=== PATIENT | male | born 1945 | race Caucasian/White ===

== ENCOUNTER 2021-08-31 18:08 | Inpatient (IN) | payer MEDICARE, OTHER ==
[~2021-08-31] VITALS: Ht 165.1 cm; Wt 87.1 kg
[2021-08-31] MEDS ORDERED: METO25TA4 PO (18:37)
[2021-08-31] MEDS ORDERED: PRAS10TA5 PO (18:37)
[2021-08-31] MEDS ORDERED: CARV3.122 PO (18:37)
[2021-08-31] MEDS ORDERED: BENA5TAB5 PO (18:37)
[2021-08-31] MEDS ORDERED: ASPI-1420 PO (18:37)
[2021-08-31] MEDS ORDERED: SIMV-46 PO (18:37)
[2021-08-31] MEDS ORDERED: CLON1TAB12 PO (18:37)
[2021-08-31] MEDS ORDERED: CYAN-51 PO (18:37)
[2021-08-31] MEDS ORDERED: TAMS-12 PO (18:37)
[2021-08-31] MEDS ORDERED: ALBU18HF2 IH (18:37)
--- NOTE | 2021-08-31 18:40 | NUR ---
BIBSON C/O SOB WITH CHERYLE LOWER LEG EDEMA. OXYGEN SATURATION IN ROOM AIR IS AT 97%. RESPIRATION REGULAR AND UNLABORED. ATTACHED TO THE MONITOR. WILL CONTINUE TO MONITOR THE PATIENT
[2021-08-31] MEDS ORDERED: FUROSEMIDE 20 MG/2 ML VIAL ONE (19:25)
[2021-08-31] MEDS ORDERED: FUROSEMIDE 20 MG/2 ML VIAL IV ONE (19:30)
--- NOTE | 2021-08-31 19:50 | NUR ---
L HAND #20G S/L PATENT AND INTACT. DRIVE TESTER AT PT'S BEDSIDE. OFFER PT URINAL . VSS
--- NOTE | 2021-08-31 19:56 | NUR ---
ORTHODONTIST VICE PRESIDENT AT PT'S BEDSIDE
[2021-08-31 20:05] LABS: CALCIUM, SERUM 9.1 mg/dL (8.5-10.1); CARBON DIOXIDE 28 mmol/L (21-32); CHLORIDE 105 mmol/L (98-107); CREATININE 1.3 mg/dL (0.6-1.3); GLUCOSE 104 mg/dL (74-106); POTASSIUM 4.4 mmol/L (3.5-5.1); SODIUM SERUM 137 mmol/L (136-145); UREA NITROGEN, BLOOD 19 mg/dL (7-18)
--- NOTE | 2021-08-31 20:59 | NUR ---
US TECH AT PT'S BEDSIDE
--- NOTE | 2021-08-31 21:09 | NUR ---
COVID TEST SWABBED AND SENT TO LAB
--- NOTE | 2021-08-31 21:10 | NUR ---
PAINT DIPPER AT BEDSIDE FOR BLOODRAW
--- NOTE | 2021-08-31 21:16 | NUR ---
MRSA SWAB COLLECTED AND SENT TO LAB. PATIENT'S BELONGINGS LIST DONE.
[2021-08-31 21:37] LABS: BASOPHILS % (AUTO) 0.7 % (0.0-2.0); EOSINOPHILS % (AUTO) 3.2 % (0.0-6.0); HEMATOCRIT 42 % (39-51); HEMOGLOBIN 13.5 g/dL (13.5-17.5); LYMPHOCYTES # (AUTO) 1.9 K/uL (0.8-4.8); LYMPHOCYTES % (AUTO) 29.4 % (20.0-44.0); MEAN CORPUSCULAR HGB CONC 32 g/dl (31.0-36.0); MEAN CORPUSCULAR VOLUME 88 fL (80-96); MONOCYTES # (AUTO) 0.7 K/uL (0.1-1.30); MONOCYTES % (AUTO) 9.9 % (2.0-12.0); NEUTROPHILS # (AUTO) 3.7 K/uL (1.8-8.9); NEUTROPHILS % (AUTO) 56.8 % (43.0-81.0); PLATELET COUNT (AUTO) 252 K/uL (150-450); RED BLOOD CELL COUNT(AUTO) 4.75 MIL/uL (4.5-6.0); WHITE BLOOD COUNT (AUTO) 6.6 K/uL (4.3-11.0)
--- NOTE | 2021-08-31 22:49 | NUR ---
TELE 308-5
[2021-08-31] MEDS ORDERED: clonazePAM 1 MG TABLET PO PRN (23:00)
--- NOTE | 2021-08-31 23:00 | NUR ---
REPORT GIVEN TO KALE
[2021-08-31 23:30] VITALS: BP 118/66
[2021-08-31] MEDS ORDERED: ACETAMINOPHEN 325 MG TABLET PO PRN (23:30)
[2021-08-31] MEDS ORDERED: Z GUARD REMEDY 4 OZ OINT TP PRN (23:30)
[2021-08-31] MEDS ORDERED: ALBUTEROL FS 2.5 MG/3 ML VIAL.NEB NEB PRN (23:30)
[2021-08-31] MEDS ORDERED: ZOLPIDEM TARTRATE 5 MG TABLET PO PRN (23:30)
[2021-08-31] MEDS ORDERED: MAGNESIUM HYDROXIDE 30 ML UDC PO PRN (23:30)
[2021-08-31] MEDS ORDERED: ONDANSETRON HCL/PF 4 MG/2 ML VIAL IVP PRN (23:30)
[2021-08-31] MEDS ORDERED: MAG HYDROX/AL HYDROX/SIMETH 30 ML UDC PO PRN (23:30)
--- NOTE | 2021-08-31 23:42 | NUR ---
PT TRANSPORTED TO ROOM 308 ON TAXI DRIVER SUPERVISOR WITHOUT INCIDENT. PT TRANSFERRED IN STABLE CONDITION.
--- NOTE | 2021-08-31 23:45 | NUR ---
RN ADMITTING NOTE PATIENT CAME FROM ER D/T CHERYLE LOWER EXT EDEMA AND SOB. PATIENT CURRENTLY ON RA, TOLERATING WELL WITH 96% O2 SATURATION, WITH MILD SOB. PATIENT HAS PITTING EDEMA ON CHERYLE FEET AND ANKLES. TELE MONITOR READS SR 78 BPM. PATIENT IS VACCINATED WITH PFIZER X 3. PATIENT HAS A L HAND 20 G PATENT AND INTACT, FLUSHING WELL. PATIENT'S SKIN ISSUES DOCUMENTED. BELONGINGS INVENTORIED. ORIENTED PATIENT TO RM, RN, COPY ROOM TECHNICIAN. SAFETY MEASURES IN PLACE: BED LOCKED AND IN LOWEST POSITION, CALL LIGHT WITHIN REACH, SIDE RAILS UP. WILL MONITOR PATIENT CLOSELY.
[2021-09-01 04:00] VITALS: BP 112/63
[2021-09-01] MEDS ORDERED: FUROSEMIDE 20 MG/2 ML VIAL IV ONE (06:00)
--- NOTE | 2021-09-01 06:35 | NUR ---
RN CLOSING NOTE PATIENT IN BED, SLEEPING, EASILY AWAKENED. PATIENT IS A/O X 4, ABLE TO MAKE NEEDS KNOWN. PATIENT STILL TOLERATING RA A 97% O2 SATURATION. PATIENT REPORTS THAT HE "FEELS BETTER" FROM WHEN HE GOT ADMITTED. 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 PATIENT STEADILY AMBULATES TO THE BATHROOM. PATIENT HAS A L HAND 20 G, SALINE LOCKED, FLUSHING WELL. NO REPORTS OF PAIN AT THIS TIME. SAFETY MEASURES IN PLACE: BED LOCKED AND IN LOWEST POSITION, CALL LIGHT WITHIN REACH, SIDE RAILS UP. WILL ENDORSE TO DAY SHIFT NURSE FOR JING.
[2021-09-01 06:38] LABS: CALCIUM, SERUM 10.1 mg/dL (8.5-10.1); CREATININE 1.3 mg/dL (0.6-1.3); MAGNESIUM 2.1 mg/dL (1.8-2.4); PHOSPHORUS 4.9 mg/dL (2.5-4.9); POTASSIUM 4.1 mmol/L (3.5-5.1)
[2021-09-01 07:18] LABS: BASOPHILS % (AUTO) 0.3 % (0.0-2.0); EOSINOPHILS % (AUTO) 3.4 % (0.0-6.0); HEMATOCRIT 40 % (39-51); HEMOGLOBIN 13.1 g/dL (13.5-17.5); LYMPHOCYTES # (AUTO) 2.3 K/uL (0.8-4.8); LYMPHOCYTES % (AUTO) 32.9 % (20.0-44.0); MEAN CORPUSCULAR HGB CONC 33 g/dl (31.0-36.0); MEAN CORPUSCULAR VOLUME 87 fL (80-96); MONOCYTES # (AUTO) 0.7 K/uL (0.1-1.30); MONOCYTES % (AUTO) 9.6 % (2.0-12.0); NEUTROPHILS # (AUTO) 3.7 K/uL (1.8-8.9); NEUTROPHILS % (AUTO) 53.8 % (43.0-81.0); PLATELET COUNT (AUTO) 230 K/uL (150-450); WHITE BLOOD COUNT (AUTO) 6.9 K/uL (4.3-11.0)
--- NOTE | 2021-09-01 07:47 | NUR ---
SUPERVISOR STEFFEN HOUSE OPENING NOTE RECEIVED PATIENT IN BED, AWAKE, A/O X4, ABLE TO MAKE NEEDS KNOWN. PATIENT ON ROOM AIR; BREATHING EVEN AND UNLABORED. TELE MONITOR WITH A CURRENT READING OF SR 71. IV ACCESS ON L HAND 20 G, SALINE LOCKED, FLUSHING WELL. NO REPORTS OF PAIN AT THIS TIME. SAFETY MEASURES IN PLACE: BED LOCKED AND IN LOWEST POSITION, CALL LIGHT WITHIN REACH, SIDE RAILS UP. WILL CONTINUE TO MONITOR PATIENT.
[2021-09-01 08:47] VITALS: BP 121/69
[2021-09-01] MEDS ORDERED: ASPIRIN EC 81 MG TABLET.DR PO SCH (09:00)
[2021-09-01] MEDS ORDERED: CYANOCOBALAMIN 500 MCG TABLET PO SCH (09:00)
[2021-09-01] MEDS ORDERED: TAMSULOSIN 0.4 MG CAP.SR.24H PO SCH (09:00)
[2021-09-01] MEDS ORDERED: CARVEDILOL 3.125 MG TABLET PO SCH (09:00)
[2021-09-01] MEDS ORDERED: PRASUGREL HCL 5 MG TABLET PO SCH ×2 (09:00)
[2021-09-01] MEDS ORDERED: BENAZEPRIL HCL 5 MG TABLET PO SCH (09:00)
[2021-09-01] MEDS ORDERED: FUROSEMIDE 40 MG/4 ML VIAL IV SCH (12:00)
--- NOTE | 2021-09-01 12:49 | NUR ---
HEAD OF DRAMA NOTES CHECKED 1200 BP: 96/54 PER MD RE-CHECKED MANUAL: BP 98/58. PER MD HOLD 1200 IRONIX
[2021-09-01 13:17] VITALS: BP 100/52
[2021-09-01] MEDS ORDERED: ENOXAPARIN SODIUM 40 MG/0.4 ML DISP.SYRIN SQ SCH (14:30)
--- NOTE | 2021-09-01 15:43 | NUR ---
TRIMMER AND REINFORCER AMA NOTES PATIENT LEFT AMA WITH FAMILY INSISTING ON DISCHARGE. FAMILY WANT THE PATIENT TRANSFERRED TO THE HOSPITAL WHERE HE USUALLY STAYS ANDS HAS HIS FULL CHARGE BOOKKEEPER. CHARGE NURSE AND RN SPOKE TO THE FAMILY EXPLAINING ALL THE RISKS OF LEAVING AT THIS TIME. PATIENT VERBALIZED UNDERSTANDING BUT STILL DECIDED TO TAKE HIM AWAY. PATIENT WANTED TO GO TO AND SAID HE DOES NOT WANT TO STAY. AMA FORM SIGNED. MADE AWARE. IV ACCESS REMOVED.
[2021-09-01] MEDS ORDERED: SIMVASTATIN 20 MG TABLET PO SCH (18:00)
[2021-09-01 21:20] LABS: CHOLESTEROL 111 mg/dL (<200); HDL CHOLESTEROL 52 mg/dL (40-60); LDL 51 mg/dL (0-99); TRIGLYCERIDES 42 mg/dL (30-150)
[2021-09-01 21:44] LABS: THYROID STIMULATING HORMONE 2.743 uIU/mL (0.358-3.74)
== END 2021-09-01 15:40 | disposition left against medical advice (07) | DRG 291 ==
LOC: ER 18:10 → TELE 23:11
PROVIDERS: ADMIT Nurse Practitioner Acute Care; ATTEND Internal Medicine
DX: I11.0 Hypertensive heart disease with heart failure (principal); I50.33 Acute on chronic diastolic (congestive) heart failure; J96.20 Acute and chronic respiratory failure, unspecified whether with hypoxia or hypercapnia; I25.10 Atherosclerotic heart disease of native coronary artery without angina pectoris; N40.0 Benign prostatic hyperplasia without lower urinary tract symptoms; Z95.5 Presence of coronary angioplasty implant and graft; E78.5 Hyperlipidemia, unspecified; E66.9 Obesity, unspecified; Z91.19 Patient's noncompliance with other medical treatment and regimen; Z68.32 Body mass index [BMI] 32.0-32.9, adult; M71.21 Synovial cyst of popliteal space [Baker], right knee; Z71.3 Dietary counseling and surveillance; Z20.822 Contact with and (suspected) exposure to COVID-19
CPT/HCPCS: 36415; 71045-TC; 80048-TC; 80061-TC; 83735-TC; 83880; 84100-TC; 84439-TC; 84443-TC; 84484-TC; 85025-TC; 87081-TC; 93307-TC; 93970-TC; C9803; G0378; J1650; J1940